=== PATIENT | female | born 1975 | race American Indian/Alaskan Native ===

== ENCOUNTER 2018-11-25 19:14 | Emergency (ER) | payer OTHER, MEDICAID ==
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
[2018-11-25] MEDS ORDERED: NORCO 5/325 PO STA (21:30)
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
[2018-11-25 22:25] VITALS: BP 134/73
== END 2018-11-25 22:25 | disposition home or self-care (01) ==
LOC: ED 19:14
DX: S80.01XA Contusion of right knee, initial encounter (principal); F17.200 Nicotine dependence, unspecified, uncomplicated; K50.90 Crohn's disease, unspecified, without complications; Z86.69 Personal history of other diseases of the nervous system and sense organs; Z98.890 Other specified postprocedural states; Z79.899 Other long term (current) drug therapy; V49.59XA Passenger injured in collision with other motor vehicles in traffic accident, initial encounter; Y93.89 Activity, other specified; Y92.410 Unspecified street and highway as the place of occurrence of the external cause; Y99.8 Other external cause status
CPT/HCPCS: 99284

== ENCOUNTER 2018-12-18 12:44 | Emergency (ER) | payer MEDICAID, OTHER ==
[2018-12-18 13:10] VITALS: BP 141/86
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
== END 2018-12-18 16:53 | disposition home or self-care (01) ==
LOC: ED 12:44
DX: M25.561 Pain in right knee (principal); K50.90 Crohn's disease, unspecified, without complications; M70.71 Other bursitis of hip, right hip; Z90.710 Acquired absence of both cervix and uterus; Z98.890 Other specified postprocedural states; Z79.899 Other long term (current) drug therapy; Z88.8 Allergy status to other drugs, medicaments and biological substances; Z88.6 Allergy status to analgesic agent